=== PATIENT | male | born 1985 | race Caucasian/White ===

== ENCOUNTER 2018-10-25 16:36 | Inpatient (IN) | payer SELFPAY ==
[~2018-10-25] VITALS: Ht 185.4 cm; Wt 77.6 kg
[2018-10-25] VITALS (11 sets, daily range): BP systolic 103–150; BP diastolic 61–78; PULSE 76–99; TEMP 97.8–99.9
--- NOTE | 2018-10-25 15:45 | NUR ---
PATIENT ARRIVED TO ROOM 326 VIA CART BY [facility]. DR. DE LEON CALLED AND NOTIFIED OF PATIENT ARRIVAL.
--- NOTE | 2018-10-25 17:13 | NUR ---
PATIENT ADMISSION ASSESSMENT COMPLETE. VIEW ASSESSMENT B. PATIENT A&O. VSS. BOWEL SOUNDS HYPOACTIVE ALL FOUR QUADRANTS. PATIENT DENIES COMPLAINTS OF N/V. PATIENT NPO FOR PROCEDURE. POSITIVE PEDAL PULSES EQUAL BILATERALLY. LR TO GRAVITY TUBING INFUSING TO LEFT AC IV. CONSENT FOR SURGERY ON PATIENT CHART. PATIENT TAKEN TO PERIOP VIA BED.
--- NOTE | 2018-10-25 19:13 | NUR ---
REPORT GIVEN TO SOLANGE SANTOS.
--- NOTE | 2018-10-25 20:35 | NUR ---
Received patient from PACU at 1999. Patient is A&O x 4. Post-op vitals intiated. Denies any pain. Abdominal lap sites x 3 with bandaids are CDI. Bowel sounds present. Patient is currently sipping on water with no c/o nausea. BLE scds in place. IVF infusing per orders. Family is at bedside. Denies any concerns or needs. Bed is in a low position with call light in reach.
--- NOTE | 2018-10-25 22:00 | NUR ---
Patient tolerated evening meal with no c/o nausea. Reports he has no pain and feels great. Voices no needs at this time.
[2018-10-26 03:29] VITALS: BP 115/68; PULSE 90; TEMP 98.2
--- NOTE | 2018-10-26 05:49 | NUR ---
Patient has rested well through the night. VSS, remains on room air. Continues to deny any pain, stating he feels "great." Abdominal lap sites x 3 with bandaids remain CDI. Denies passing any gas. Bowel sounds present. Voiding with no difficulities. Patient is up with standby assist, gait is steady. Denies any concerns or needs. Will report off to SOLANGE herrmann.
--- NOTE | 2018-10-26 06:29 | NUR ---
Patient reported abdomen being sore and requested a pain pill, 1 tablet of prn [place] given. Patient is reporting passing gas this morning now. Voices no other concerns or needs. Will report off to the dayshift RN.
[2018-10-26 06:48] LABS: HEMATOCRIT 39.9 % (42.0-52.0); HEMOGLOBIN 13.7 g/dl (13.5-18.0); MEAN CELL VOLUME 91 fl (80.0-100.0); MEAN CORPUSCULAR HEMOGLOBIN 31 pg (27.0-31.0); MEAN CORPUSCULAR HGB CONC 34 g/dl (33.0-37.0); PLATELET COUNT 213 K/mm3 (130-400); RED BLOOD COUNT 4.37 M/mm3 (4.20-5.60)
[2018-10-26 06:51] LABS: CALCIUM 8.5 mg/dL (8.4-10.2); CREATININE, serum 0.61 mg/dL (0.66-1.25); POTASSIUM 4.3 mmol/L (3.4-5.0)
[2018-10-26 07:45] VITALS: BP 111/64; PULSE 106; TEMP 98.3
--- NOTE | 2018-10-26 08:00 | NUR ---
PATIENT IS DROWSY THIS MORNING, OTHERWISE PATIENT IS A&O TO PERSON. GENERALIZED WEAKNESS NOTED. IRREGULAR HEART RHYTHM AND TACHYCARDIA NOTED, OTHERWISE VSS. TELE IN PLACE. BOWEL SOUNDS ACTIVE ALL FOUR QUADRANTS. PATIENT TOLERATING FOOD & LIQUIDS WITHOUT ANY COMPLAINTS OF N/V. LABORED BREATHING AND DYSPNEA WITH EXERTION NOTED. PATIENT STATES THAT HE FEELS SHORT OF BREATH. EXPIRATORY WHEEZES AUSCULTATED OVER ALL LUNG SUMMERS. PATIENT DENIES A PRODUCTIVE COUGH. NON-PITTING EDEMA TO BUE NOTED. PICC LINE TO RUE. POSITIVE PEDAL PULSES EQUAL BILATERALLY. 1+ PITTING-[place] TO BLE. CAP REFILL <3 SECONDS. CMS INTACT. SCD'S TO RLE. DRESSING WITH DENISE WRAP FROM THIGH TO TOES IS CD&I. MARKHAM CATHETER TO DEPENDENT DRAINAGE WITH MODERATE AMOUNTS OF [place] URINE WITH SEDIMENT PRESENT IN MARKHAM BAG. BREAKFAST TRAY ORDERED. CALL LIGHT WITHIN REACH. NO OTHER NEEDS AT THIS TIME.
--- NOTE | 2018-10-26 08:00 | NUR ---
PATIENT UP TO THE CHAIR AND AMBULATING THROUGHOUT THE HALLS THIS MORNING. PATIENT IS A&O. TACHYCARDIA NOTED, OTHERWISE VSS. BOWEL SOUNDS ACTIVE ALL FOUR QUADRANTS. PATIENT TOLERATING FOOD & LIQUIDS WITHOUT ANY COMPLAINTS OF N/V. ABDOMINAL LAP SITES X3 DRESSED WITH BANDAIDS AND ARE CD&I. POSITIVE PEDAL PULSES EQUAL BILATERALLY. IV FLUIDS INFUSING TO LEFT AC IV VIA PUMP. BREAKFAST TRAY ORDERED. CALL LIGHT WITHIN REACH. PATIENT DENIES ANY OTHER NEEDS AT THIS TIME.
[2018-10-26 08:13] LABS: BAND 12 % (0-10); NEUTROPHILS 80 % (42.0-75.2); PLATELET ESTIMATE NORMAL (NORMAL)
[2018-10-26 08:14] LABS: LYMPHOCYTE 6 % (20.0-51.0)
--- NOTE | 2018-10-26 09:48 | NUR ---
PATIENT CALLED OUT REQUESTING SOMETHING FOR PAIN. PATIENT GIVEN PRN DOSE OF IV TORADOL. NO OTHER NEEDS AT THIS TIME.
[2018-10-26 12:44] VITALS: BP 120/65; PULSE 105; TEMP 98.3
--- NOTE | 2018-10-26 13:17 | NUR ---
PATIENT CALLED OUT REQUESTING PAIN MEDICATION. PATIENT GIVEN 2 TABLETS OF PRN [place]. PATIENT DENIES ANY OTHER NEEDS AT THIS TIME.
--- NOTE | 2018-10-26 13:21 | NUR ---
PATIENT GRIMACING, STIFF AND STATES THAT HIS KNEE HURTS WHEN REPOSITIONED IN BED. PATIENT GIVEN 1 TABLET OF PRN NORCO. NO OTHER NEEDS AT THIS TIME.
--- NOTE | 2018-10-26 14:53 | NUR ---
Initial visit; Patient thanked [employer] Travel Agent for looking in on him and offering God's blessings.
--- NOTE | 2018-10-26 15:15 | NUR ---
SW met with patient to discuss discharge planning. patient lives in [place] independently. Patient does not have insurance and Armando from [employer] filled out a FFA shakeel with him. Patient does not have a PCP and obtains his medications from [place] [facility]. Patient does not have any anticipated discharge needs at this time.
[2018-10-26 16:18] VITALS: BP 145/68; PULSE 101; TEMP 98.2
[2018-10-26 19:00] VITALS: BP 124/78; PULSE 75; TEMP 98.3
--- NOTE | 2018-10-26 19:16 | NUR ---
REPORT GIVEN TO RAJEEV CONTI.
--- NOTE | 2018-10-26 20:00 | NUR ---
Patient resting in bed watching television at this time. Patient is alert and oriented, answers questions appropriately. Patient has been up ambulating in the halls independently twice this shift. Patient states that his pain is tolerable at this time, but does request PRN Tordol with HS meds. Three lap sites to abdomen are [place], bandaids are CDI. Patient denies further needs at this time, call light within reach.
[2018-10-27 04:06] VITALS: BP 106/55; PULSE 84; TEMP 98.2
--- NOTE | 2018-10-27 05:17 | NUR ---
Patient rested well overnight. IV antibiotics infusing per order. Patient remains independent, has made no further complaints of pain, call light within reach.
--- NOTE | 2018-10-27 08:22 | NUR ---
Resting in bed at this time, call light in reach. Denies pain or nausea this morning. Interested in going home today. Refused nicoderm patch this morning reporting that it caused nausea.
[2018-10-27 09:01] VITALS: BP 125/86; PULSE 83; TEMP 98.2
--- NOTE | 2018-10-27 10:23 | NUR ---
Patient was in very good spirits and was looking forward to going home soon. I visited for a while and provided spiritual care.
[2018-10-27] MEDS ORDERED: LEVAQUIN 750MG750 M1 PO (11:06)
[2018-10-27] MEDS ORDERED: FLAGYL500 MG PO (11:06)
[2018-10-27] MEDS ORDERED: MOTRIN 600600 MG/TAB PO (11:07)
[2018-10-27] MEDS ORDERED: NORCO 325 MG-7.1 TAB PO (11:07)
[2018-10-27] MEDS ORDERED: COLACE 100100 MG/CAP PO (11:07)
--- NOTE | 2018-10-27 12:32 | NUR ---
Patient Health Summary, Discharge Summary, and Home Meds printed and reviewed with patient. Stressed importance of two week follow up appointment with Dr. Gipson that patient will need to call and schedule on Monday. He voiced understanding. Reviewed medications, provided printed prescriptions for [place], ABT's and Ibuprofen for patient. Belongings gathered by [employer] including patient's wallet, clothing, sun glasses and phone. Patient transported via wheelchair by [employer] and seatbelted for ride home with friend. Patient denied questions.
== END 2018-10-27 12:00 | disposition home or self-care (01) | DRG 340 ==
LOC: SDCO 16:36 → SURG 16:37
PROVIDERS: ADMIT Surgery
PROC: 0DTJ4ZZ Resection of Appendix, Percutaneous Endoscopic Approach (ICD-10-PCS; principal; 2018-10-25 17:00)
DX: K35.33 Acute appendicitis with perforation, localized peritonitis, and gangrene, with abscess (principal)
CPT/HCPCS: J0330; J1100; J1885; J2405; J2543; J2704; J2710; J3010; J7042